=== PATIENT | male | born 1950 | race American Indian/Alaskan Native ===

== ENCOUNTER 2021-11-24 13:20 | Outpatient (CLI) | payer MEDICARE, OTHER ==
[~2021-11-24 13:20] MED LIST: AMLO5TAB PO; BENZ-49 PO; CYCL-1 PO; DASA100T PO; FINA5TAB11 PO; FLO0.4C PO; LEVIMIR INSULIN SQ; LORA1TAB PO; MORP60TA77 PO; MULT1TAB82 PO; MYCO250C46 PO; OMEP20CA15 PO; ONDA8TAB6 PO; OXYC-658 PO; PSYL575P5 PO; SIMV80TA2 PO; TACR5CAP2 PO; [UNRECOGNIZED DRUG - REMARK]
[2021-11-24 14:52] LABS: BASOPHILS % (AUTO) 0.5 % (0-1); EOSINOPHILS # (AUTO) 0.2 X10'3 (0-0.9); EOSINOPHILS % (AUTO) 2.3 % (0-6); LYMPHOCYTES # (AUTO) 1.8 X10'3 (1.1-4.8); LYMPHOCYTES % (AUTO) 20.3 % (21-51); MEAN CORPUSCULAR HEMOGLOBIN 30.3 PG (27.0-31.0); MEAN CORPUSCULAR HGB CONC 33.3 g/dL (33.0-36.5); MEAN CORPUSCULAR VOLUME 91.1 FL (78-98); MEAN PLATELET VOLUME 8.6 FL (7.4-10.4); MONOCYTES # (AUTO) 0.9 X10'3 (0-0.9); MONOCYTES % (AUTO) 10.2 % (2-12); NEUTROPHILS % (AUTO) 66.7 % (42-75); PRE OP HEMATOCRIT 41.6 % (42.0-52.0); PRE OP HEMOGLOBIN 13.9 g/dL (14.0-17.9); PRE OP PLATELET COUNT 210 X10'3 (140-440); RED BLOOD COUNT 4.57 X10'6 (4.70-6.10); RED CELL DISTRIBUTION WIDTH 14.1 % (11.5-14.5)
[2021-11-24 15:13] LABS: ALBUMIN 3.6 G/DL (3.4-5.0); ALBUMIN/GLOBULIN RATIO 0.8 (1.1-1.5); ALKALINE PHOSPHATASE 138 IU/L (46-116); BLOOD UREA NITROGEN 30 MG/DL (7-18); BUN/CREATININE RATIO 31.3 (5.4-32.0); CALCIUM 9.8 MG/DL (8.5-10.1); CHLORIDE 102 MMOL/L (99-107); CREATININE 0.96 MG/DL (0.60-1.10); PRE OP ALT 20 U/L (30-65); PRE OP ANION GAP 10 (8-16); PRE OP AST 17 U/L (10-37); PRE OP BILIRUB, TOTAL 0.2 MG/DL (0.0-1.0); PRE OP GLUCOSE 173 MG/DL (70-104); PRE OP POTASSIUM 4.8 MMOL/L (3.4-5.1); PRE OP SODIUM 137 MMOL/L (135-145); TOTAL CARBON DIOXIDE 24.9 MMOL/L (24-32); TOTAL PROTEIN 8.2 G/DL (6.4-8.2); eGFR 77 ML/MIN
[2021-11-24] MEDS ORDERED: TACR1TAB PO (16:29)
[2021-11-24] MEDS ORDERED: BUSP15TA8 PO (16:29)
[2021-11-24] MEDS ORDERED: SIMV-45 PO (16:29)
[2021-11-24] MEDS ORDERED: DOXE10CA2 PO (16:29)
[2021-11-24] MEDS ORDERED: DULO-31 PO (16:29)
[2021-11-24] MEDS ORDERED: ACET-1995 PO (16:29)
== END 2021-11-24 23:59 | disposition home or self-care (01) ==
LOC: LAB 13:20 → EDSTATUS 11-30 07:30
PROVIDERS: ATTEND Orthopaedic Surgery
DX: Z01.818 Encounter for other preprocedural examination (principal); M75.102 Unspecified rotator cuff tear or rupture of left shoulder, not specified as traumatic; M19.012 Primary osteoarthritis, left shoulder
CPT/HCPCS: 36415; 80053; 85025; 87811; 93005